=== PATIENT | male | born 1970 | race Caucasian/White ===

== ENCOUNTER 2016-08-06 13:57 | Emergency (ER) | payer OTHER ==
--- NOTE | 2016-08-06 14:00 | EDPHY ---
H & P Time Seen by Provider: 08/06/16 14:00 Constitutional: Initial Vital Signs Temperature (C) 37.1 C 08/06/16 14:26 Heart Rate 114 H 08/06/16 14:26 Respiratory Rate 18 08/06/16 14:26 Blood Pressure 162/111 H 08/06/16 14:26 O2 Sat (%) 92 08/06/16 14:26 O2 Delivery Mode Room Air Allergies/Adverse Reactions: No Known Allergies Allergy (Verified 08/06/16 14:19) Home Medications: Medication Instructions Recorded NK [No Known Home Meds] 08/06/16 Medical Decision Making ED Course/Re-evaluation: CHIEF COMPLAINT: Psychiatric evaluation HISTORY OF PRESENT ILLNESS: The patient is a 46-year-old male who presents on M1 hold by police for suicide ideation. He reports that recently he has wanted to kill himself due to relationship problems. A few days ago he drank alcohol and took all of his Zoloft. He has a plan and will either hang himself or cut his wrist. He denies HI. He has no medical complaints at this time. REVIEW OF SYSTEMS: A 10 point review of systems was performed and is negative with the exception of the elements mentioned in the history of present illness. PHYSICAL EXAM: General Appearance: Alert, well hydrated, appropriate, and non-toxic appearing. Head: Atraumatic without scalp tenderness or obvious injury Eyes: Pupils equal, round, reactive to light and accommodation, EOMI, no trauma , no injection. Ears: Clear bilaterally, no perforation, normal landmarks Nose: Atraumatic, no rhinorrhea, clear. Throat: There is no erythema or exudates, no lesions, normal tonsils, mucus membranes moist. Neck: Supple, 2+ carotid upstroke, nontender, no lymphadenopathy. Respiratory: No retractions, no distress, no wheezes, and no accessory muscle use. Lungs are clear to auscultation bilaterally. Cardiovascular: Regular rate and rhythm, no murmurs, rubs, or gallops. Bilateral carotid, radial, dorsalis pedis, and posterior tibial pulses intact. Good capillary refill all extremities. Gastrointestinal: Abdomen is soft, nontender, non-distended, no masses, no rebound, no guarding, no peritoneal signs. Musculoskeletal: Normal active ROM of all extremities, atraumatic. Neurological: Alert, appropriate, and interactive. The patient has normal DTRs and non-focal cranial nerves, motor, sensory, and cerebellar exam. Skin: No rashes, good turgor, no nodules on palpation. Past medical history: Depression. Past surgical history: N/A. Family history: N/A. Social history: Here alone. DIFFERENTIAL DIAGNOSIS: The differential diagnosis for the patient's depression included but was not limited to functional and major depression, situational depression, medication side effect, drugs, and alcohol abuse. MEDICAL DECISION MAKING: Patient is in no acute distress and is hemodynamically stable. We are awaiting psychiatric team's evaluation. Patient has known history of psychiatric disorders and is here for evaluation. (Edson Henry) 7:30am--accepted at [facility] for SI. EMTALA completed. (Genoveva Neri) 7:45 a.m.-the patient has been stable throughout my shift. He is awaiting psychiatric placement in appears he has a bed at [facility]. (Brenna Fairchild) - Data Points Laboratory Results: Laboratory Results 08/06/16 14:14 08/06/16 14:14 08/06/16 14:14 Total Bilirubin 1.9 mg/dL H mg/dL (0.1-1.4) Conjugated Bilirubin 0.6 mg/dL H mg/dL (0.0-0.5) Unconjugated Bilirubin 1.3 mg/dL H mg/dL (0.0-1.1) AST 181 IU/L H IU/L (17-59) ALT 176 IU/L H IU/L (21-72) Alkaline Phosphatase 82 IU/L IU/L (38-126) Total Protein 7.8 g/dL g/dL (6.3-8.2) Albumin 5.0 g/dL g/dL (3.5-5.0) TSH 1.930 uIU/mL uIU/mL (0.465-4.680) Medications Given: Discontinued Medications Diphenhydramine HCl (Benadryl) 25 mg PO EDNOW ONE Stop: 08/06/16 23:03 Last Admin: 08/06/16 23:17 Dose: 25 mg Nicotine (Nicoderm Cq) 14 mg TD EDNOW ONE Stop: 08/06/16 23:03 Last Admin: 08/06/16 23:21 Dose: Not Given Departure - Departure Disposition: Acute Care Hospital Not [facility] Clinical Impression: Suicide ideation Depression Qualifiers: Depression Type: unspecified Qualified Code(s): F32.9 - Major depressive disorder, single episode, unspecified Condition: Fair Referrals: NONE *PRIMARY CARE P,. [Primary Care Provider] - As per Instructions Report Scribed for: Edson Henry Report Scribed by: Segundo Wallace Date of Report: 08/06/16 Time of Report: 14:23
[2016-08-06 14:23] LABS: % IMMATURE GRANULYOCYTES 0.7 % (0.0-1.1); ABSOLUTE IMMATURE GRANULOCYTES 0.08 10^3/uL (0.00-0.10); ADD DIFF? NO; ADD MORPH? NO; ADD SCAN? NO; ATYPICAL LYMPHOCYTE FLAG 0 (0-99); FRAGMENT RBC FLAG 0 (0-99); HEMATOCRIT 52.1 % (40.0-51.0); LEFT SHIFT FLG 0 (0-99); LIPEMIA HEMOLYSIS FLAG 90 (0-99); MEAN CELL HEMOGLOBIN 28.6 pg (27.9-34.1); MEAN CELL HEMOGLOBIN CONCENTR. 34.5 g/dL (32.4-36.7); MEAN CELL VOLUME 82.8 fL (81.5-99.8); MEAN PLATELET VOLUME 8.7 fL (8.7-11.7); PLATELET CLUMPS FLAG 0 (0-99); PLATELET COUNT 324 10^3/uL (150-400); RED BLOOD CELL COUNT 6.29 10^6/uL (4.40-6.38); RED CELL DISTRIBUTION WIDTH 15.9 % (11.5-15.2)
[2016-08-06 14:50] LABS: ANION GAP 20 mEq/L (8-16); CALCIUM 9.7 mg/dL (8.5-10.4); CARBON DIOXIDE 21 mEq/l (22-31); CHLORIDE 95 mEq/L (97-110); CREATININE 0.9 mg/dL (0.7-1.3); ETHANOL SERUM 299 mg/dL (0-10); GLOMERULAR FILTRATION RATE > 60; GLUCOSE 81 mg/dL (70-100); POTASSIUM 4.5 mEq/L (3.5-5.2); SALICYLATE < 1.0 mg/dL (2.0-20.0); SODIUM 136 mEq/L (134-144)
[2016-08-06] MEDS ORDERED: diphenhydrAMINE 25 MG CAP PO ONE (23:02)
[2016-08-06] MEDS: NICOTINE 14 MG/24 HR PATCH TD ONE ×2 (23:17→23:21)
[2016-08-07 01:39] LABS: BILIRUBIN,TOTAL 1.9 mg/dL (0.1-1.4); BILIRUBIN-CONJUGATED 0.6 mg/dL (0.0-0.5); BILIRUBIN-UNCONJUGATED 1.3 mg/dL (0.0-1.1); TOTAL PROTEIN 7.8 g/dL (6.3-8.2)
[2016-08-07] MEDS ORDERED: OLANZapine 5 MG TAB PO ONE (08:11)
[2016-08-07] MEDS ORDERED: OLANZapine DISINTEGR 5 MG TAB ONE (08:12)
[2016-08-07 08:29] VITALS: TEMP 98.4
[2016-08-07 10:25] VITALS: BP 169/81; PULSE 85; RESP 18; O2SAT 95
== END 2016-08-07 10:30 | disposition short-term general hospital (02) ==
DX: R45.851 Suicidal ideations (principal); F32.9 Major depressive disorder, single episode, unspecified
CPT/HCPCS: 80305; G0480

== ENCOUNTER 2018-05-26 12:52 | Emergency (ER) | payer OTHER ==
--- NOTE | 2018-05-26 13:57 | EDPHY ---
General - History Smoking Status: Former smoker Time Seen by Provider: 05/26/18 13:15 Narrative: CLINICAL IMPRESSION: Left 4th finger ASSESSMENT/PLAN: 48-year-old male presents to the emergency department with an acute laceration to the left volar 4th finger after cutting his hand on a knife in the sink. Patient has intact distal 2 point discrimination, neurovascular exam, with no evidence of flexor tendon injury. No other injuries. Tetanus up-to-date. Full range of motion of the wrist. Patient received digital block and wound was thoroughly explored with no deep structure injury. Sutures placed as per chart notes. Wound care discussed, sinus symptoms of infection reviewed, warning signs return to ED sooner outlined and discharge. DIFFERENTIAL DIAGNOSIS: includes but not limited to laceration of tendon or vascular structure, underlying fracture, laceration with retained FB ED PROCECURES: Laceration Repair Verbal consent obtained by patient. Risks discussed, including but not limited to infection, pain, retained foreign body, need for additional repair, poor cosmetic result, tendon damage, nerve damage, poor wound healing, vascular damage. Alternatives to repair discussed. [place] protocol used to establish correct patient, procedure, equipment, direct support professional, and site. Anesthesia obtained by nerve block. Anesthetized with 0.5% bupivacaine without epinephrine to left 4th MCP. Laceration location left 4th volar finger, length 3.5 cm, depth 3 mm, Repair type simple. Patient was prepped and draped in usual sterile fashion. Hemostasis achieved with direct pressure. Wound explored through full range of motion and entire depth of wound probed and visualized with gloved finger. No suspicion for nerve damage, tendon damage, underlying fracture, vascular damage, foreign body, or contamination. Area was cleansed with Shur-Clens and irrigated with sterile saline as per protocol. No foreign body or material removed. Repair method 5 0 Prolene simple interrupted. FOURTEEN sutures placed. Well aligned, closely approximated. wound was dressed with bacitracin Band-Aid. Patient tolerated well with no immediate complications. Wound care: Clean and dry x 24 hours, gently clean with soap and water, cover with topical antibiotic ointment/bandage. Suture/Staple removal: 7-10 Days CHIEF COMPLAINT: Laceration HPI: 48-year-old male presents to the emergency department with an acute laceration to the volar surface of the left 4th finger after he reached into his sink to grab some dishes and grabbed a very sharp knife. Patient reports no difficulty with movement of the finger, reports no sensory changes. He is right-hand dominant. No concern for foreign body. Tetanus reported up-to-date. No other injuries. PAST MEDICAL HISTORY: None reported Pertinent Past Surgical History: None reported Social History: Up-to-date on tetanus REVIEW OF SYSTEMS: All other systems negative Constitutional: No fever, no chills Musculoskeletal: No deformity, no joint pain Skin: Laceration to left 4th finger Neurological: No sensory loss or weakness, 2 point discrimination intact. PHYSICAL EXAM: General Appearance: Alert, oriented, appropriate for age, cooperative, NAD, well hydrated, non-toxic appearing, VSS, no hypoxia. Neurological: Alert and oriented x 3 Skin: 2.5 cm laceration to the volar surface of the left 4th finger Musculoskeletal: Distal 2 point discrimination intact. Full flexion of the IP , PIP and MCP joint of the left 3rd finger. No clinical suspicion for flexor tendon injury. Normal movement of surrounding fingers. Patient is able to abduct without difficulty. MEDICAL DECISION MAKING: Patient was seen independently. Secondary supervising physician at time of evaluation was Dr. Jean . Diagnosis: Left 3rd finger laceration. New, requires workup Summary: See assessment and plan for summary of ED visit Independent visualization of images, tracing, or specimens Yes / No. Patient Progress improved. (Cesar Swift) Discussion: The patient was evaluated and managed by the Physician Elevator Repair Mechanic. My co- signature indicates that I have reviewed this chart and I agree with the findings and plan of care as documented. I am the secondary supervising physician. (Maribel Jean) - Objective Vital Signs: Initial Vital Signs Temperature (C) 36.8 C 05/26/18 12:56 Heart Rate 74 05/26/18 12:56 Respiratory Rate 16 05/26/18 12:56 Blood Pressure 157/93 H 05/26/18 12:56 O2 Sat (%) 95 05/26/18 12:56 O2 Delivery Mode Room Air Allergies/Adverse Reactions: No Known Allergies Allergy (Verified 05/26/18 12:56) Home Medications: Medication Instructions Recorded NK [No Known Home Meds] 08/06/16 Departure - Departure Disposition: Home, Routine, Self-Care Clinical Impression: Finger laceration Condition: Good Instructions: Finger Laceration (ED) Additional Instructions: DISCHARGE INSTRUCTIONS FROM YOUR DOCTOR Thank you for visiting our emergency department today. Please keep in mind that discharge from the emergency department does not mean that there is nothing wrong - it simply means that we have not identified an emergency condition that requires further evaluation or treatment in the hospital. You should always plan to follow up with primary care for re-evaluation of your condition in the next 2-3 days. If you have been referred to a specialist, please call as soon as possible (today or tomorrow) to schedule your follow up appointment at the appropriate time. PLEASE HAVE SUTURES/DM REMOVED IN 10 DAYS. YOU CAN RETURN TO THE EMERGENCY DEPARTMENT OR YOUR PRIMARY CARE FOR SUTURE/STAPLE REMOVAL. AVOID SUBMERGING SUTURES/DM UNDERWATER FOR PROLONGED PERIOD OF TIME UNTIL REMOVED. KEEP WOUND CLEAN AND DRY, COVER WITH ANTIBIOTIC OINTMENT AND BAND-AID. RETURN TO EMERGENCY DEPARTMENT FOR REDNESS, SWELLING, DISCHARGE, WARMTH TO THE SKIN, OR ANY OTHER CONCERNS FOR INFECTION. People present with illnesses and injuries in different ways, and it is always possible that we have missed something. You may always return for re-evaluation if symptoms worsen or if they are not improving or if you develop new/different symptoms. Again, thank you for choosing our emergency department. We hope that you feel better. Referrals: Art Hernandez MD [Primary Care Provider] - As per Instructions
[2018-05-26 15:26] VITALS: BP 128/84
== END 2018-05-26 15:16 | disposition home or self-care (01) ==
PROC: 0HQGXZZ Repair Left Hand Skin, External Approach (ICD-10-PCS; principal; 2018-05-26)
DX: S61.215A Laceration without foreign body of left ring finger without damage to nail, initial encounter (principal); W26.0XXA Contact with knife, initial encounter; Y92.9 Unspecified place or not applicable; Y99.9 Unspecified external cause status; Y93.9 Activity, unspecified

== ENCOUNTER 2018-05-27 20:30 | Emergency (ER) | payer OTHER ==
--- NOTE | 2018-05-27 20:40 | EDPHY ---
H & P - Medical/Surgical History Hx Asthma: No Hx Chronic Respiratory Disease: No Hx Diabetes: No Hx Cardiac Disease: No Hx Renal Disease: No Hx Cirrhosis: No Hx Alcoholism: No Hx HIV/AIDS: No Hx Splenectomy or Spleen Trauma: No Other PMH: depression - Social History Smoking Status: Former smoker Time Seen by Provider: 05/27/18 20:39 HPI/ROS: CHIEF COMPLAINT: Intentional overdose, alcohol abuse, suicide attempt HISTORY OF PRESENT ILLNESS: 48-year-old male arrives via ambulance after his roommate called 911. Patient states that he broke up with his girlfriend today , has been consuming alcohol today, and at11:00 a.m. purchased 2 bottles of 500 mg acetaminophen, #100 tablets in each bottle, has consumed unknown amount of tablets between 11:00 a.m. and 8:00 p.m.. 1 bottle of Tylenol is empty, the other has multiple pills in it and seal is broken. He has no complaints of discomfort. No abdominal pain. No chest pain. No hallucination. No seizure. No nausea or vomiting. REVIEW OF SYSTEMS: 10 systems reviewed and negative with the exception of the elements mentioned in the history of present illness PAST MEDICAL & SURGICAL HISTORY: No pertinent medical or surgical history SOCIAL HISTORY: Positive for alcohol use PHYSICAL EXAM (Prior to examination, patient consented to physical exam, hands were washed and my usual and customary physical exam procedures followed) 1) GENERAL: Well-developed, well-nourished, alert and oriented. Smells of alcohol.. 2) HEAD: Normocephalic, frontal head abrasion. 3) HEENT: Pupils equal, round, reactive to light bilaterally. Sclera anicteric. 4) NECK: No cervical collar. No midline C-spine pain. Full pain-free range of motion which does not elicit midline pain or peripheral paresthesia, weakness , numbness. 5) LUNGS: Clear auscultation bilaterally, no wheezes, no rhonchi, no retractions. 6) HEART: Regular rate and rhythm, no murmur, no heave, no gallop. 7) ABDOMEN: No guarding, no rebound, no focal tenderness, negative McBurney's, negative Crenshaw's, negative Rovsing's, negative peritoneal sign, 8) MUSCULOSKELETAL: Moving all extremities, no focal areas of tenderness, no obvious trauma. No peripheral edema or discoloration. Left 4th digit palmar aspect sutures in place with no dehiscence or infection signs. 9) BACK: No CVA tenderness, no midline vertebral tenderness, no fluctuance, no step-off, no obvious trauma, no visual or palpable abnormality. 10) SKIN: No rash, no petechiae. 11) Psychiatric: Patient is oriented X 3, there is no agitation. Smells of alcohol DIFFERENTIAL DIAGNOSIS: In no particular order include but limited to suicide attempt, liver failure, acetaminophen overdose, intracranial hemorrhage (Carla Galvan) Constitutional: Initial Vital Signs Temperature (C) 36.6 C 05/27/18 20:42 Heart Rate 75 05/27/18 20:42 Respiratory Rate 16 05/27/18 20:42 Blood Pressure 141/84 H 05/27/18 20:42 O2 Sat (%) 94 05/27/18 20:42 O2 Delivery Mode Room Air O2 (L/minute) 2 Allergies/Adverse Reactions: No Known Allergies Allergy (Verified 05/26/18 12:56) Home Medications: Medication Instructions Recorded NK [No Known Home Meds] 08/06/16 Medical Decision Making - Diagnostics Imaging Results: Imaging Impressions Cervical Spine CT 05/27/18 21:26 Impression: Negative noncontrast CT of the head with no intracranial posttraumatic sequela identified. CT Cervical Spine Without Contrast History: Trauma. Technique: Multislice helical CT through the cervical spine without contrast from the skull base to T1. Soft tissue and bone evaluation is performed. Sagittal and coronal reconstructions are obtained and reviewed. Dose reduction techniques were utilized. Findings: Cervical alignment is anatomic. No acute fracture or dislocation is identified. Several small well-corticated ossicles are noted adjacent to the odontoid which are probably normal variant versus residua of remote trauma The relationship between skull base and C1 is normal. The C1-C2 articulation is normal. The odontoid process is normal. Disk spaces maintain their normal height. The cervical thoracic junction is normal. Soft tissue window evaluation does not show evidence of epidural or prevertebral hematoma. Impression: 1.Negative for acute fracture. 2. See above report for additional findings. Results called and discussed with Carla PALUMBO on 05/27/2018 at 22:03. Head CT 05/27/18 21:26 Impression: Negative noncontrast CT of the head with no intracranial posttraumatic sequela identified. CT Cervical Spine Without Contrast History: Trauma. Technique: Multislice helical CT through the cervical spine without contrast from the skull base to T1. Soft tissue and bone evaluation is performed. Sagittal and coronal reconstructions are obtained and reviewed. Dose reduction techniques were utilized. Findings: Cervical alignment is anatomic. No acute fracture or dislocation is identified. Several small well-corticated ossicles are noted adjacent to the odontoid which are probably normal variant versus residua of remote trauma The relationship between skull base and C1 is normal. The C1-C2 articulation is normal. The odontoid process is normal. Disk spaces maintain their normal height. The cervical thoracic junction is normal. Soft tissue window evaluation does not show evidence of epidural or prevertebral hematoma. Impression: 1.Negative for acute fracture. 2. See above report for additional findings. Results called and discussed with Carla PALUMBO on 05/27/2018 at 22:03. Imagesreviewed myself (Carla Galvan) ED Course/Re-evaluation: 8:39 p.m.: Patient greeted on arrival by myself. Patient smells of alcohol, is providing inconsistencies in his timing of when he consumed acetaminophen and how much, if any, he has consumed.. Will obtain diagnostic studies include and administered charcoal and weight on acetaminophen level prior to possible administering Mucomyst. 9:07 p.m.: Patient is acetaminophen level is 38. Will repeat acetaminophen blood draw at 11:00 p.m.. 9:27 p.m.: Patient has a frontal abrasion which he states secondary to banging his head against a wall earlier this evening, states that they may have experienced a brief loss of consciousness at that time. Denies fall from height.. Head CT ordered in this patient for trauma for the following indication: Loss of consciousness and intoxicated 11:44 p.m.: Recheck acetaminophen level is downward trending, 33 at this time. Midnight: Care turned over to Dr. Yakov Mayo (Carla Galvan) 0251: I reviewed the case in information. I have reviewed his LFTs, Tylenol levels. I spoke with poison Control Kathryn LACKEY at 0240AM: CASE # [id number]. They would like repeat LFTs at this time and a callback. The patient ingested unknown amount of Tylenol and unknown exact time of ingestion somewhere between 10:00 a.m. And 8:00 p.m.. He arrived in the emergency room at 8:40 p.m.. His initial level was elevated at 38. His 11:00 p.m. Level was elevated 33 but going down. His LFTs were normal. Salicylate level negative. I discussed this in length poison Control. They are requesting another set of LFTs. 0259: Speak with the patient. He reports to me that he thinks he only took 4 to 5tabs of 500 mg dose Tylenol not a large amount. He states that he had 1 empty bottle of Tylenol already that he ran out of and 1 but a new bottle today. States he thinks he took this around 5:00 p.m.. He denies large amount ingestion. 0502AM: Spoke with Poison Control, Kathryn LACKEY, discussed case. Discussed the case in detail. Given that the repeat LFTs are normal he would not pursue the NAC protocol. Medically cleared at this time. Patient currently resting comfortably without any symptoms. He denies any abdominal pain vomiting nausea and is clinically sober this time he will need mental health evaluation. 0700: Patient has been seen and evaluated by mental health [facility], the patient is not suicidal he contracts for safety. He does not want hurt himself or anybody else. He has been given mental health resources. I did go see and talk to him he is calm and cooperative comfortable being discharged. The M1 hold has been lifted by [facility], and safe for discharge. (Yakov Mayo) - Data Points Laboratory Results: Laboratory Results 05/27/18 20:43 05/27/18 20:43 05/28/18 05/27/18 05/27/18 03:25 23:08 22:30 WBC RBC Hgb Hct MCV MCH MCHC RDW Plt Count MPV Neut % (Auto) Lymph % (Auto) [place] % (Auto) Eos % (Auto) Baso % (Auto) Nucleat RBC Rel Count Absolute Neuts (auto) Absolute Lymphs (auto) Absolute Monos (auto) Absolute Eos (auto) Absolute Basos (auto) Absolute Nucleated RBC Immature Gran % Immature Gran # PT INR APTT Sodium Potassium Chloride Carbon Dioxide Anion Gap BUN Creatinine Estimated GFR Glucose Calcium Total Bilirubin 0.6 mg/dL mg/dL (0.1-1.4) Conjugated Bilirubin 0.3 mg/dL mg/dL (0.0-0.5) Unconjugated Bilirubin 0.3 mg/dL mg/dL (0.0-1.1) AST 33 IU/L IU/L (17-59) ALT 41 IU/L IU/L (21-72) Alkaline Phosphatase 59 IU/L IU/L (38-126) Total Protein 6.4 g/dL g/dL (6.3-8.2) Albumin 4.1 g/dL g/dL (3.5-5.0) Salicylates Urine Opiates Screen NEGATIVE (NEGATIVE) Acetaminophen 33 mcg/mL H mcg/mL (10-30) Urine Barbiturates NEGATIVE (NEGATIVE) Ur Phencyclidine Scrn NEGATIVE (NEGATIVE) Ur Amphetamine Screen NEGATIVE (NEGATIVE) U Benzodiazepines Scrn NEGATIVE (NEGATIVE) Urine Cocaine Screen NEGATIVE (NEGATIVE) U Marijuana (THC) Screen NEGATIVE (NEGATIVE) Ethyl Alcohol 05/27/18 05/27/18 05/27/18 20:43 20:43 20:43 WBC 12.25 10^3/uL H 10^3/uL (3.80-9.50) RBC 6.29 10^6/uL 10^6/uL (4.40-6.38) Hgb 18.1 g/dL H g/dL (13.7-17.5) Hct 54.2 % H % (40.0-51.0) MCV 86.2 fL fL (81.5-99.8) MCH 28.8 pg pg (27.9-34.1) MCHC 33.4 g/dL g/dL (32.4-36.7) RDW 13.1 % % (11.5-15.2) Plt Count 383 10^3/uL 10^3/uL (150-400) MPV 9.0 fL fL (8.7-11.7) Neut % (Auto) 55.0 % % (39.3-74.2) Lymph % (Auto) 35.8 % % (15.0-45.0) [place] % (Auto) 5.6 % % (4.5-13.0) Eos % (Auto) 1.1 % % (0.6-7.6) Baso % (Auto) 0.9 % % (0.3-1.7) Nucleat RBC Rel Count 0.0 % % (0.0-0.2) Absolute Neuts (auto) 6.73 10^3/uL H 10^3/uL (1.70-6.50) Absolute Lymphs (auto) 4.38 10^3/uL H 10^3/uL (1.00-3.00) Absolute Monos (auto) 0.69 10^3/uL 10^3/uL (0.30-0.80) Absolute Eos (auto) 0.14 10^3/uL 10^3/uL (0.03-0.40) Absolute Basos (auto) 0.11 10^3/uL H 10^3/uL (0.02-0.10) Absolute Nucleated RBC 0.00 10^3/uL 10^3/uL (0-0.01) Immature Gran % 1.6 % H % (0.0-1.1) Immature Gran # 0.20 10^3/uL H 10^3/uL (0.00-0.10) PT 12.2 SEC SEC (12.0-15.0) INR 0.88 (0.83-1.16) APTT 25.7 SEC SEC (23.0-38.0) Sodium 144 mEq/L mEq/L (135-145) Potassium 4.2 mEq/L mEq/L (3.5-5.2) Chloride 106 mEq/L mEq/L (97-110) Carbon Dioxide 21 mEq/l L mEq/l (22-31) Anion Gap 17 mEq/L H mEq/L (6-14) BUN 13 mg/dL mg/dL (7-23) Creatinine 1.0 mg/dL mg/dL (0.7-1.3) Estimated GFR > 60 Glucose 75 mg/dL mg/dL (70-100) Calcium 9.7 mg/dL mg/dL (8.5-10.4) Total Bilirubin 0.7 mg/dL mg/dL (0.1-1.4) Conjugated Bilirubin 0.3 mg/dL mg/dL (0.0-0.5) Unconjugated Bilirubin 0.4 mg/dL mg/dL (0.0-1.1) AST 47 IU/L IU/L (17-59) ALT 45 IU/L IU/L (21-72) Alkaline Phosphatase 82 IU/L IU/L (38-126) Total Protein 8.5 g/dL H g/dL (6.3-8.2) Albumin 5.5 g/dL H g/dL (3.5-5.0) Salicylates < 1.0 mg/dL L mg/dL (2.0-20.0) Urine Opiates Screen Acetaminophen 38 mcg/mL H mcg/mL (10-30) Urine Barbiturates Ur Phencyclidine Scrn Ur Amphetamine Screen U Benzodiazepines Scrn Urine Cocaine Screen U Marijuana (THC) Screen Ethyl Alcohol 327 mg/dL H mg/dL (0-10) Medications Given: Discontinued Medications Charcoal (Actidose-Aqua) 50 gm PO EDNOW ONE Stop: 05/27/18 20:46 Last Admin: 05/27/18 20:56 Dose: 50 gm Ondansetron HCl (Zofran) 4 mg IVP EDNOW ONE Stop: 05/27/18 21:14 Last Admin: 05/27/18 21:13 Dose: 4 mg Departure - Departure Disposition: Home, Routine, Self-Care Clinical Impression: Alcohol abuse, Suicide attempt Condition: Good Instructions: Alcohol Intoxication (ED), Depression (ED) Additional Instructions: 1. If you have any further thoughts of depression, wanting to hurt herself or anybody else return immediately to the emergency room. 2. Please follow up with resources you were given today. Referrals: Atr Hernandez MD [Primary Care Provider] - As per Instructions [facility] [Clinic] - As per Instructions
[2018-05-27] MEDS ORDERED: ACTIVATED CHARCOAL 50 GM/240 ML BOTTLE PO ONE (20:45)
[2018-05-27 20:49] LABS: PLATELET COUNT 383 10^3/uL (150-400)
[2018-05-27] MEDS ORDERED: ONDANSETRON 4 MG/2 ML VIAL ONE (21:10)
[2018-05-27] MEDS ORDERED: ONDANSETRON 4 MG/2 ML VIAL IVP ONE (21:13)
[2018-05-27 21:16] LABS: INR 0.88 (0.83-1.16); PROTIME(PATIENT) 12.2 SEC (12.0-15.0)
--- NOTE | 2018-05-27 22:29 | CPEKG ---
Test Reason : OPEN Blood Pressure : / mmHG Vent. Rate : 069 BPM Atrial Rate : 070 BPM P-R Int : 151 ms QRS Dur : 081 ms QT Int : 427 ms P-R-T Axes : 067 017 048 degrees QTc Int : 458 ms Sinus rhythm Confirmed by Genoveva Davies ([id number]) on 05/27/2018 10:29:48 PM Referred By: GENOVEVA DAVIES Confirmed By:Genoveva Davies
[2018-05-28 07:13] VITALS: BP 132/69
--- NOTE | 2018-05-28 07:29 | ASMTTLCEVL ---
TLC Evaluation - Basic Information Evaluation Start Date and 05/28/2018 06:20 AM Time Hospital Status Answers: M1 Hold 72-hr M1 Hold Start Date 05/27/2018 07:30 PM and Time Patient statement Notes: I dont remember most of that. I was unhappy. I was kind of drowning my sorrows in alcohol. I took 4 Tylenol PM tabs because I knew it would make to go to sleep. I dont want to kill myself. I can ensure my own safety if allowed to be released from the ED. I want to get back to work. I love my job. Narrative Notes: Pt is a 48 yo, single, employed, male, with reported history of feeling low grade depression most of my life, alcohol use disorder, severe, in sustained remission for 4 months prior to relapsing last night 05/27/17, and marijuana use disorder, moderate, brought to [facility] ED by [facility] on M1 hold which noted: Officer dispatched to check on Alonzo Schilling. His girlfriend, Ros called and said they broke up on Saturday and today, Alonzo told her that he didnt want to live and he was going to show her how much she means to him by killing himself. Upon contact, he had to crawl to the door and he could not unlock it right away. When he did open it he stood up and fell into a glass mirror, breaking it. He told officer he just wanted to sleep. He said he drank 1 750 ml of Congolese Mist whiskey and took an unknown amount of acetaminophen PM. [facility] transported him to [facility]. He told them he didnt want to live and just wanted to go to sleep. He was placed on a M1 because he is a danger to himself. Diagnosis History Notes: Pt reported a history of feeling low grade depression most of my life, alcohol use disorder, severe, in sustained remission for 4 months prior to relapsing last night 05/27/17, and marijuana use disorder, moderate. Prior suicide attempts Notes: Pt reported no prior history of suicide attempts. Prior hospitalizations Notes: Pt stated he was hospitalized at [facility] for 3 days in August 2016 for suicidal ideation following a break up with a girlfriend. Treatment Responses Notes: N/A. History of violence Notes: Pt denied any homicidal ideation/intent/plans to harm anyone. Pt denied any past history of aggression/violence. Therapist: None. Psychiatrist: None. Medications (name, dosage, route, freq uency) Notes: None. Allergies/Reaction Notes: NKDA Sleep Notes: Pt reported fine. Appetite Notes: Pt reported fine. Medical/Surgical history Notes: Noncontributory. Substance use history (frequency, intensity, his tory, duration) Notes: Pt reported he first tried alcohol and marijuana at age 18. Pt reported that he drank alcohol heavily and was problematic for 20 years up to the point where he quit drinking on his own 4 months ago. Pt relapsed yesterday following breakup with girlfriend on Saturday. He said he drank 1 750 ml of Congol[place] Mist whiskey. Pt reported he typically smokes marijuana a couple of times per week, with last use reported as 05/25/18. Pt denied any past history of use of any other illicit substances. BAL was .327 at 2043 hrs. Breathalizer results the following morning at 0615 hrs were .064. UDS results were negative for all tested substances. Family composition Notes: Pt reported that his father lives in [place], [place]. He reported that his mother from brain cancer 4 years ago. He has two younger sisters, ages 43 and 40. Pt stated that he has regular contacts with family members. Need for family Answers: No participation in patient's care Family psychiatric/substance abuse history Notes: Pt reported that his PGFOC had a history of alcoholism but had quit throughout most of pts life. Developmental history Notes: Pt reported he was born and grew up in [place], [place]. He endorsed having achieved normal developmental milestones. He denied having any learning challenges in school. He denied any childhood history of TBIs, LOC or concussions. He denied any childhood history of physical, emotional or sexual abuse/trauma. Abuse concerns Answers: None Marital status/children Notes: Pt is single, never , no dependents. Pt had been involved in relationship with girlfriend, Ros Mcqueen [phone] for the past 8 months. Pt reported that they broke up on Saturday after they had an argument after pt saw her texting one of her exs. Living situation Notes: Pt resides with his male roommate in an apartment in [place]. He and roommate have known each other for 25 years. Sexual history/orientation Notes: Not active. Heterosexual. Peer support/family strengths Notes: Pt identified his roommate and family as his supports. Education level/history Notes: Pt reported he attended two years at [employer] in [place], [place]. 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 Pt stated I love my job. Notes: None. Legal Notes: Pt denied any arrest/legal history. Nondenominational/Spiritual Notes: None identified which might impact treatment. Leisure Notes: Pt stated he enjoys playing guitar and that in the past he enjoyed giving guitar lessons and expressed a desire to do that again. Patient's strengths Answers: Artistic/Creative/Musical (Please select at least TWO strengths): Honest Insightful Intelligent Responsible/Dependable TLC Evaluation - Mental Status Exam Appearance: Answers: Appropriate Clean Unkempt Disheveled Eye Contact: Answers: Good/Direct Mood: Answers: Euthymic Sad Affect: Answers: Bright Calm Congruent w/ Mood Sad Subdued Behavior: Answers: Appropriate Cooperative Speech: Answers: Relevant Logical Clear Coherent Thought Process: Answers: Organized Oriented Alert Goal Oriented Intact Insight: Answers: Good Judgement: Answers: Fair Depression Answers: Sad Mood Signs/Symptoms: Hallucinations: Answers: None Current Stage of Change Answers: Relapse Pt reported to have Answers: No suicidal/self-injuring ideation/behavior? Pt reported to be making Answers: No suicidal/self-injuring threats? Pt reported to have Answers: No aggression/assault ideation/behavior? Pt reported to be making Answers: No aggression/assault threats? Pt exhibits inability to Answers: No care for self/grave disability? Ideation/behavior is Answers: No chronic? Patient has a specific Answers: No plan? Pt has access to means to Answers: No execute the plan? Ideation involves Answers: No serious/lethal intent? Ideation has Answers: No delusional/hallucinatory content? History of Answers: No suicidal/self-injuring ideation, behavior, or threats? History of Answers: No aggressive/assaultive ideation, behavior, or threats? History of serious Answers: No physical harm to self/others while in treatment setting? TLC Evaluation - Suicide/Homicide Risk Suicide Risk Factors: Answers: < 20 or > 40 Years of Age Alcohol/Heavy Drug Use Intoxication Lack of Nondenominational Support Single Homicide/violence risk Answers: None factors: Current Suicidal Answers: No Ideation? Current Suicidal Ideation Answers: No in the Past 48 Hours? Current Suicidal Ideation Answers: No in the Past Month? Suicide Internal Answers: Absence of Psychosis Protective Factors: Frustration Tolerance Bill with Stress Suicide External Answers: Social Support Protective Factors: Ranking of patient's Answers: Low suicidal risk: Ranking of patient's Answers: Low homicidal risk: TLC Evaluation - Wrap-up BDI Total Score: 1 BDI Question #2 Score: 0 BDI Question #9 Score: 1 BSS Total Score: 0 AXIS I Diagnosis (include DSM-V and ICD-10 codes), must also be entered in [employer], which is the source of truth. Notes: Alcohol Intoxication, with use disorder, severe, in sustained remission for 4 months prior to 05/27/17 303.00 (F10.229) Adjustment Disorder with Depressed Mood 309.0 (F43.21) Cannabis Use Disorder, moderate 304.30 (F12.20) Persistent Depressive Disorder (Dysthymia) 300.4 (F34.1) In consultation with [facility] ED physician, Yakov Mayo MD, Dr. Mayo concurred that pt does not appear to meet 27-65 criteria requiring psychiatric hospitalization as pt does not appear to be an imminent risk of harm to self/others/gravely disabled due to a mental illness condition. Dr. Mayo provided verbal order read back vacating M1 hold at 0655 hrs. Evaluation End Date and 05/28/2018 07:30 AM Time (HH:MM): Date Signed: 05/28/2018 07:28 AM Electronically Signed By:Ankush Patterson
--- NOTE | 2018-05-28 07:30 | ASMTTCLDSP ---
TLC Discharge Disposition Disposition: Answers: Discharge If Answers: Yes DISCHARGED: Patient/family given suicide hotline info & [employer] brochure? Disposition Notes: Notes: Pt stated commitment or ability to keep self safe, denied thoughts of self harm or harm to others. Pt was given local hotline information and [employer] brochure After an Attempt. Discharge Concerns/Recommendations: Notes: In consultation with [facility] ED physician, Yakov Mayo MD, Dr. Mayo concurred that pt does not appear to meet 27-65 criteria requiring psychiatric hospitalization as pt does not appear to be an imminent risk of harm to self/others/gravely disabled due to a mental illness condition. Dr. Mayo provided verbal order read back vacating M1 hold at 0655 hrs. Was patient given the Answers: Not applicable Inpatient Behavioral Health Prohibited Belongings List while in the ED? Psychiatrist vacating M1 Yakov Mayo MD Hold: Date and time M1 hold 05/28/2018 06:55 AM vacated (time format is hh:mm): Type of Hold: Answers: M1/72-hour Hold Hold initiated by: Answers: Police Date Signed: 05/28/2018 07:29 AM Electronically Signed By:Ankush Patterson
== END 2018-05-28 08:02 | disposition home or self-care (01) ==
LOC: EDUNIT#
DX: T14.91XA Suicide attempt, initial encounter (principal); T39.1X2A Poisoning by 4-Aminophenol derivatives, intentional self-harm, initial encounter; Y92.009 Unspecified place in unspecified non-institutional (private) residence as the place of occurrence of the external cause; F10.920 Alcohol use, unspecified with intoxication, uncomplicated
CPT/HCPCS: 80305; 96374; G0480; J2405